=== PATIENT | female | born 1960 | race Caucasian/White ===

== ENCOUNTER → 2017-07-01 | Outpatient (CLI) | payer OTHER ==
--- NOTE | 2017-07-01 07:48 | MR ---
EXAMINATION TYPE: MR brain wo/w con DATE OF EXAM: 07/01/2017 7:15 AM COMPARISON: NONE HISTORY: G25.0 Benign essential Tremor CONTRAST: Gadavist 10 mL Multiplanar and multispin-echo imaging of the brain was performed . Pre and post contrast enhanced i mages are obtained. The ventricles, basal cisterns and sulci overlying the cerebral convexities are minimally enlarged. There is evidence of mild periventricular white matter ischemic demyelination. Remote deep white matter insults are also noted. No acute edema is seen on diffusion weighted imaging. There is no evidence for midline shift or mass effect. Acute intracranial hemorrhage or extra-axial collection is not evident. No enhancing lesions are seen. The paranasal sinuses and mastoid air cells are well-aerated. IMPRESSION: Age-related atrophic and chronic small vessel ischemic change. No acute intracranial process at this time. No enhancing lesions are seen.
== END | disposition home or self-care (01) ==
LOC: RADMRIMAIN 06:32
PROVIDERS: ATTEND Psychiatry & Neurology Neurology
DX: G31.1 Senile degeneration of brain, not elsewhere classified (principal); I67.82 Cerebral ischemia
CPT/HCPCS: 70553; A9581

== ENCOUNTER → 2021-03-25 | Outpatient (CLI) | payer MEDICARE, OTHER ==
--- NOTE | 2021-03-26 16:11 | BD ---
EXAMINATION TYPE: Axial Bone Density DATE OF EXAM: 03/25/2021 COMPARISON: NONE CLINICAL HISTORY: 60 YR OLD FEMALE.....ICD-10 CODE: M06.9 RA Height: 64 Weight: 193 FRAX RISK QUESTIONS: Glucocorticoids (More than 3mos): YES (Ex: prednisone, prednisolone, methylprednisolone, dexamethasone, and hydrocortisone). Rheumatoid Arthritis: YES RISK FACTORS HISTORY OF: Diet low in dairy products/other sources of calcium: YES Postmenopausal woman: YES, AT AGE 54 YRS Take estrogen and/or progesterone medications: YES, FOR HORMONES How long: FOR ABOUT 2 YRS Hyperparathyroidism: NO Adrenal Insufficiency: NO MEDICATIONS: Prednisone or other steroids: YES, FOR ABOUT 3 YRS FOR RA Additional Medications: WELLBUTRIN, REFLUX MEDS, METHOTREXATE IN THE PAST, PLAQUENIL, Additional History: RA, REFLUX, ANXIETY AND DEPRESSION, EXAM MEASUREMENTS: Bone mineral densitometry was performed using the i[employer] System. Bone mineral density as measured about the Lumbar spine is: ----- L1-L4(G/cm2): 1.225 T Score Values are as follows: ----- L1: -0.3 ----- L2: 0.4 ----- L3: 0.4 ----- L4: 0.7 ----- L1-L4: 0.4 Bone mineral density FIRST DEXA SCAN.......BASELINE STUDY Bone mineral density about the R hip (g/cm2): 0.968 Bone mineral density about the L hip (g/cm2): 1.051 T Score values are as follows: -----R Neck: -0.9 -----L Neck: -1.3 -----R Total: -0.3 -----L Total: 0.3 Bone mineral density FIRST DEXA STUDY.......BASELINE FRAX%s: THERE IS A 14.3% CHANCE FOR A MAJOR OSTEOPOROTIC FX AND A 1.2% FOR HIPS....PROBABILITY FO R FX IN 10 YRS TIME IMPRESSION: Osteopenia (T Score between -2.5 and -1) femoral neck level left hip. There is slightly increased risk of fracture and the patient may be considered for treatment. Re-Screen 2-5 years. NOTE: T-SCORE=SD OF THE YOUNG ADULT MEAN.
== END | disposition home or self-care (01) ==
LOC: RADBDWWP 12:17
PROVIDERS: ATTEND Internal Medicine
DX: M85.852 Other specified disorders of bone density and structure, left thigh (principal)
CPT/HCPCS: 77080